=== PATIENT | male | born 1975 | race Hispanic/Latino ===

== ENCOUNTER 2017-04-28 17:30 | Emergency (ER) | payer OTHER ==
[2017-04-28 17:30] VITALS: BMI 33.2
[2017-04-28 17:46] VITALS: TEMP 98.3; O2SAT 98
--- NOTE | 2017-04-28 18:35 | C.PDOC ---
History Of Present Illness 42 y/o male presents to ED with complaints of bilateral back pain with radiation to neck for 1 month. Patient saw PMD today for symptoms and sent him to ED for further evaluation of cervical spine. Patient denies numbness, tingling, weakness or any other complaints at this time. Time Seen by Provider: 04/28/17 18:21 Chief Complaint (Nursing): Upper Extremity Problem/Injury History/Exam Limitations: no limitations Onset/Duration Of Symptoms: Days Quality: "Pain" Past Medical History Reviewed: Historical Data, Nursing Documentation, Vital Signs Vital Signs: Last Vital Signs Temp 98.3 F 04/28/17 17:44 Pulse 84 04/28/17 17:44 Resp 20 04/28/17 17:44 BP 117/83 04/28/17 17:44 Pulse Ox 98 04/28/17 18:47 - Medical History PMH: HTN Family History: States: No Known Family Hx - Social History Hx Tobacco Use: No Hx Alcohol Use: No Hx Substance Use: No Review Of Systems Constitutional: Negative for: Fever, Chills Cardiovascular: Negative for: Chest Pain Respiratory: Negative for: Shortness of Breath Gastrointestinal: Negative for: Nausea, Vomiting, Diarrhea Musculoskeletal: Positive for: Neck Pain, Back Pain Skin: Negative for: Rash Neurological: Negative for: Weakness, Numbness, Headache Physical Exam - Physical Exam Appears: Non-toxic, No Acute Distress Skin: Normal Color, Warm Head: Atraumatic, Normacephalic Oral Mucosa: Moist Neck: Normal ROM, No Midline Cervical Tenderness Gastrointestinal/Abdominal: Soft, No Tenderness, No Guarding, No Rebound Back: Other (Tenderness to Bilateral Trapezius Muscle, ) Extremity: Normal ROM, No Deformity, No Swelling Neurological/Psych: Oriented x3, Normal Speech, Normal Motor, Normal Sensation ED Course And Treatment O2 Sat by Pulse Oximetry: 98 (RA) Pulse Ox Interpretation: Normal Disposition Counseled Patient/Family Regarding: Studies Performed, Diagnosis, Need For Followup - Disposition Disposition: HOME/ ROUTINE Disposition Time: 19:51 Condition: STABLE Additional Instructions: Take medications as prescribed. Follow up with Dr Gould. 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 - Scribe Statement The provider has reviewed the documentation as recorded by the Deidre Escobar All medical record entries made by the Deidre were at my direction and personally dictated by me. I have reviewed the chart and agree that the record accurately reflects my personal performance of the history, physical exam, medical decision making, and the department course for this patient. I have also personally directed, reviewed, and agree with the discharge instructions and disposition.
[2017-04-28 20:27] VITALS: BP 124/72; PULSE 72; RESP 18
--- NOTE | 2017-04-29 11:10 | RAD ---
PROCEDURE: Cervical spine dated 04/28/2017 Note that the distal tip of the odontoid is partially obscured by overlying incisor teeth in the open-mouth projection HISTORY: Pain. COMPARISON: None. FINDINGS: BONES: Current study reveals no evidence of acute compression fractures nor retropulsed fragments. Vertebral bodies exhibit normal stature and alignment. Facets normally aligned. DISC SPACES: Disc space heights are relatively maintained. . Very tiny multilevel posterior osteophyte formation SOFT TISSUES: Normal. No prevertebral soft tissue swelling. OTHER FINDINGS: None. IMPRESSION: No acute fractures. Multilevel tiny posterior osteophyte formation.
== END 2017-04-28 20:27 | disposition home or self-care (01) ==
LOC: C.ER 17:30
DX: M62.830 Muscle spasm of back (principal)

== ENCOUNTER 2017-12-01 14:12 | Emergency (ER) | payer OTHER ==
[2017-12-01 14:12] VITALS: BMI 33.2
[2017-12-01 14:43] VITALS: O2SAT 100
[2017-12-01] MEDS ORDERED: Sodium Chloride 0.9% 500 ML IV STA (16:39)
[2017-12-01] MEDS ORDERED: Sodium Chloride 0.9% 500 ML IV ONE (16:46)
[2017-12-01 17:05] LABS: BASO # 0.1 K/uL (0.0-0.2); BASO % 0.8 % (0.0-2.0); EOS # 0.1 K/uL (0.0-0.7); EOS % 1.5 % (0.0-4.0); LYMPH # 2.3 K/uL (1.0-4.3); LYMPH % 31.3 % (20.0-40.0); MEAN CELL VOLUME 89.5 fL (80.0-94.0); MEAN CORPUSCULAR HEMOGLOBIN 30.6 pg (27.0-31.0); MEAN CORPUSCULAR HGB CONC 34.3 g/dL (33.0-37.0); MEAN PLATELET VOLUME 9.2 fL (7.2-11.7); MONO # 0.5 K/uL (0.0-0.8); MONO % 6.5 % (0.0-10.0); NEUT # 4.5 K/uL (1.8-7.0); NEUT % 59.9 % (50.0-75.0); NRBC % 0.1 % (0.0-2.0); RBC 4.56 Mil/uL (4.40-5.90); RED CELL DISTRIBUTION WIDTH 12.4 % (11.5-14.5); WHITE BLOOD COUNT 7.5 K/uL (4.8-10.8)
[2017-12-01 17:12] LABS: ALB/GLOB RATIO 1.3 (1.0-2.1); ALBUMIN 4.2 g/dL (3.5-5.0); ALT/SGPT 44 U/L (21-72); AST/SGOT 29 U/L (17-59); BLOOD UREA NITROGEN 13 mg/dL (9-20); GFR AFRICAN-AMERICAN > 60; GFR NON-AFRICAN AMERICAN > 60
[2017-12-01 17:14] LABS: INR 1.1; PROTHROMBIN TIME 12.3 SECONDS (9.7-12.2)
--- NOTE | 2017-12-01 17:29 | C.PDOC ---
History Of Present Illness 42 year old male with Hx of brain aneurisms presents to the ED for evaluation of painless bleeding from his rectum that started yesterday. Patient reports he did not see a lot of blood in his toll but it was mostly on the toilet paper after he went to the bathroom. Patient states never having similar symptoms, gone to a GI doctor or having a colonoscopy done. Patient reports he had 1 brain aneurysm clipped and currently is going to [facility] to have another brain aneurysm clipped as well. Patient reports he takes aspirin 81 mg everyday, and lisinopril for his HTN. Patient denies fever, chills, nausea vomit , abdominal pain, rectal pain, dysuria, hematuria, weaknes, numbness. Time Seen by Provider: 12/01/17 15:57 Chief Complaint (Nursing): GI Problem History Per: Patient History/Exam Limitations: no limitations Onset/Duration Of Symptoms: Hrs Current Symptoms Are (Timing): Still Present Amount of Blood Loss: Small Associated Symptoms: Rectal Bleeding Modifying Factors: None Currently Taking: Aspirin Recent travel outside of the [place]: No Additional History Per: Patient Past Medical History Reviewed: Historical Data, Nursing Documentation, Vital Signs Vital Signs: Last Vital Signs Temp 97.9 F 12/01/17 14:41 Pulse 71 12/01/17 14:41 Resp 20 12/01/17 14:41 BP 130/84 12/01/17 14:41 Pulse Ox 100 12/01/17 14:41 - Medical History PMH: HTN Other PMH: brain aneurysm Surgical History: No Surg Hx Family History: States: Other Other Family History: Brain aneurysm - Social History Hx Tobacco Use: No Hx Alcohol Use: No Hx Substance Use: No - Immunization History Hx Tetanus Toxoid Vaccination: No Hx Influenza Vaccination: No Hx Pneumococcal Vaccination: No Review Of Systems Constitutional: Negative for: Fever, Chills Cardiovascular: Negative for: Chest Pain, Palpitations Gastrointestinal: Positive for: Other (rectal bleeding). Negative for: Nausea, Vomiting, Abdominal Pain Genitourinary: Negative for: Dysuria, Hematuria Musculoskeletal: Negative for: Back Pain Skin: Negative for: Rash Neurological: Negative for: Weakness, Numbness Physical Exam - Physical Exam Appears: Non-toxic, No Acute Distress Skin: Normal Color, Warm, Dry Head: Atraumatic, Normacephalic Eye(s): bilateral: Normal Inspection Nose: No Discharge, No Deformity Oral Mucosa: Moist Neck: Normal ROM, Supple Chest: Symmetrical Cardiovascular: Rhythm Regular, No Murmur Respiratory: Normal Breath Sounds, No Rales, No Rhonchi, No Wheezing Gastrointestinal/Abdominal: Soft, No Tenderness, No Guarding, No Rebound Rectal: Maroon Stool, Blood Streaked Stool, No Hemorrhoids, No Mass Extremity: Normal ROM, No Pedal Edema, No Calf Tenderness, No Deformity, No Swelling Neurological/Psych: Oriented x3, Normal Speech, Normal Cognition Gait: Steady ED Course And Treatment - Laboratory Results Result Diagrams: 12/01/17 16:56 12/01/17 16:56 O2 Sat by Pulse Oximetry: 100 (On RA) Pulse Ox Interpretation: Normal Progress Note: Plan: -Labs. -IV fluids. 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 - Scribe Statement The provider has reviewed the documentation as recorded by the Scribe Emery Tanner All medical record entries made by the Scribe were at my direction and personally dictated by me. I have reviewed the chart and agree that the record accurately reflects my personal performance of the history, physical exam, medical decision making, and the department course for this patient. I have also personally directed, reviewed, and agree with the discharge instructions and disposition.
--- NOTE | 2017-12-01 17:29 | C.PDOC ---
History Of Present Illness 42 year old male with Hx of brain aneurisms presents to the ED for evaluation of painless bleeding from his rectum that started yesterday. Patient reports he did not see a lot of blood in his toll but it was mostly on the toilet paper after he went to the bathroom. Patient states never having similar symptoms, gone to a GI doctor or having a colonoscopy done. Patient reports he had 1 brain aneurysm clipped and currently is going to [facility] to have another brain aneurysm clipped as well. Patient reports he takes aspirin 81 mg everyday, and lisinopril for his HTN. Patient denies fever, chills, nausea vomit , abdominal pain, rectal pain, dysuria, hematuria, weaknes, numbness. Time Seen by Provider: 12/01/17 15:57 Chief Complaint (Nursing): GI Problem Past Medical History Reviewed: Historical Data, Nursing Documentation, Vital Signs Vital Signs: Last Vital Signs Temp 97.8 F 12/01/17 18:01 Pulse 60 12/01/17 18:01 Resp 18 12/01/17 18:01 BP 112/69 12/01/17 18:01 Pulse Ox 100 12/01/17 18:01 - Medical History PMH: HTN Other PMH: Brain aneurysm Surgical History: No Surg Hx Family History: States: Other Other Family History: Brain aneurysm - Social History Hx Tobacco Use: No Hx Alcohol Use: No Hx Substance Use: No - Immunization History Hx Tetanus Toxoid Vaccination: No Hx Influenza Vaccination: No Hx Pneumococcal Vaccination: No Review Of Systems Constitutional: Negative for: Fever, Chills Cardiovascular: Negative for: Chest Pain, Palpitations Respiratory: Negative for: Cough, Shortness of Breath Gastrointestinal: Positive for: Other (rectal bleeding). Negative for: Nausea, Vomiting, Abdominal Pain Genitourinary: Negative for: Dysuria, Hematuria Musculoskeletal: Negative for: Back Pain Skin: Negative for: Rash Neurological: Negative for: Weakness, Numbness Physical Exam - Physical Exam Appears: Non-toxic, No Acute Distress Skin: Normal Color, Warm, Dry Head: Atraumatic, Normacephalic Eye(s): bilateral: Normal Inspection Nose: No Discharge, No Deformity Oral Mucosa: Moist Neck: Normal ROM, Supple Chest: Symmetrical Cardiovascular: Rhythm Regular, No Murmur Respiratory: Normal Breath Sounds, No Rales, No Rhonchi, No Wheezing Gastrointestinal/Abdominal: Soft, No Tenderness, No Guarding, No Rebound Rectal: Heme Positive (light brown stool), No Hemorrhoids, No Mass Extremity: Normal ROM, No Pedal Edema, No Calf Tenderness, No Deformity, No Swelling Neurological/Psych: Oriented x3, Normal Speech, Normal Cognition Gait: Steady ED Course And Treatment - Laboratory Results Result Diagrams: 12/01/17 16:56 12/01/17 16:56 O2 Sat by Pulse Oximetry: 100 (On RA) Pulse Ox Interpretation: Normal Progress Note: Plan: -Labs. -IV fluids. -Occult blood stool (+). -Labs - unremarkable, patient is stable to be d/c with PMD and GI follow up. Disposition - Disposition Referrals: Sasha Gould MD [Staff Provider] - Disposition: HOME/ ROUTINE Disposition Time: 17:26 Condition: STABLE Additional Instructions: Follow up with your PMD and Nurse College within 1-2 days. Return to ED if feel worse. 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 - Scribe Statement The provider has reviewed the documentation as recorded by the Scribe Emery Tanner All medical record entries made by the Scribe were at my direction and personally dictated by me. I have reviewed the chart and agree that the record accurately reflects my personal performance of the history, physical exam, medical decision making, and the department course for this patient. I have also personally directed, reviewed, and agree with the discharge instructions and disposition.
[2017-12-01 18:06] VITALS: BP 112/69; PULSE 60; RESP 18; TEMP 97.8
== END 2017-12-01 18:06 | disposition home or self-care (01) ==
LOC: C.ER 14:12
DX: K62.5 Hemorrhage of anus and rectum (principal); I10 Essential (primary) hypertension; Z79.82 Long term (current) use of aspirin
CPT/HCPCS: 80053; 85025; 85610; 85730; 99284; G0328; J7040

== ENCOUNTER 2018-05-05 16:25 | Emergency (ER) | payer OTHER ==
[2018-05-05 16:25] VITALS: BMI 33.2
[2018-05-05 18:41] VITALS: BP 128/83; PULSE 69; RESP 18; TEMP 98.4; O2SAT 97
--- NOTE | 2018-05-05 19:32 | C.PDOC ---
History Of Present Illness 43 y/o male presents to the ER complaining of sore throat and intermittent productive cough which has been present for the past few days. Patient states that he also has slight change in his voice. Tuan having fever, difficulty swallowing food, sick contacts, and recent travel. Chief Complaint (Nursing): Cough, Cold, Congestion History Per: Patient History/Exam Limitations: no limitations Onset/Duration Of Symptoms: Days Current Symptoms Are (Timing): Still Present Severity: Moderate Past Medical History Reviewed: Historical Data, Nursing Documentation, Vital Signs Vital Signs: Last Vital Signs Temp 98.4 F 05/05/18 18:40 Pulse 69 05/05/18 18:40 Resp 18 05/05/18 18:40 BP 128/83 05/05/18 18:40 Pulse Ox 97 05/05/18 19:35 - Medical History PMH: HTN, TIA Other Surgeries: Hx of surgeries Family History: States: No Known Family Hx - Social History Hx Tobacco Use: No Hx Alcohol Use: No Hx Substance Use: No - Immunization History Hx Tetanus Toxoid Vaccination: Yes Hx Influenza Vaccination: Yes Hx Pneumococcal Vaccination: Yes Review Of Systems Except As Marked, All Systems Reviewed And Found Negative. Constitutional: Negative for: Fever, Chills ENT: Positive for: Throat Pain Respiratory: Positive for: Cough Physical Exam - Physical Exam Appears: Non-toxic, No Acute Distress Skin: Normal Color, Warm, Dry Head: Atraumatic, Normacephalic Eye(s): bilateral: Normal Inspection Ear(s): Bilateral: Normal Nose: Normal Oral Mucosa: Moist Throat: Erythema, No Exudate Neck: Supple Chest: Symmetrical Cardiovascular: Rhythm Regular Respiratory: Normal Breath Sounds, No Rales, No Rhonchi, No Wheezing Neurological/Psych: Oriented x3, Normal Speech ED Course And Treatment O2 Sat by Pulse Oximetry: 97 (RA) Pulse Ox Interpretation: Normal - Radiology CXR: Interpreted by Me, Viewed By Me CXR Interpretation: Yes: No Acute Disease Medical Decision Making Medical Decision Making: Plan: --CXR Updates: CXR was negative. Patient has been discharged and instructed to follow up with PMD in 2-3 days. Disposition - Disposition Referrals: Sasha Gould MD [Staff Provider] - Disposition: HOME/ ROUTINE Disposition Time: 17:50 Condition: GOOD Additional Instructions: KIRK MENDEZ, thank you for letting us take care of you today. Your provider was Bill Patten DO and you were treated for THROAT PAINS/COUGH. The emergency medical care you received today was directed at your acute symptoms. If you were prescribed any medication, please fill it and take as directed. It may take several days for your symptoms to resolve. Return to the Emergency Department if your symptoms worsen, do not improve, or if you have any other problems. Please contact your doctor or call one of the physicians/clinics you have been referred to that are listed on the Patient Visit Information form that is included in your discharge packet. Bring any paperwork you were given at discharge with you along with any medications you are taking to your follow up visit. Our treatment cannot replace ongoing medical care by a primary care provider outside of the emergency department. Thank you for allowing the [facility] team to be part of your care today. Follow up with your primary care doctor in 2-3 days for re-evaluation and further management. Prescriptions: Amoxicillin 875 mg PO BID #14 tablet Ibuprofen [Motrin] 600 mg PO Q6 PRN #20 tab PRN Reason: Pain, Moderate (4-7) Instructions: Sore Throat, Adult (DC) Forms: [employer] ([place]) - Clinical Impression Clinical Impression: Upper respiratory infection - Scribe Statement The provider has reviewed the documentation as recorded by the Thomibroshni Gatica Provider Attestation: All medical record entries made by the Scribe were at my direction and personally dictated by me. I have reviewed the chart and agree that the record accurately reflects my personal performance of the history, physical exam, medical decision making, and the department course for this patient. I have also personally directed, reviewed, and agree with the discharge instructions and disposition.
--- NOTE | 2018-05-05 19:32 | RAD ---
HISTORY: r/o infiltrate COMPARISON: Portable chest 11/27/2016. TECHNIQUE: Chest PA and lateral FINDINGS: LUNGS: No active pulmonary disease. PLEURA: No significant pleural effusion identified. No pneumothorax apparent. CARDIOVASCULAR: Normal. OSSEOUS STRUCTURES: No significant abnormalities. VISUALIZED UPPER ABDOMEN: Normal. OTHER FINDINGS: None. IMPRESSION: No interval acute cardiopulmonary disease appreciated.
== END 2018-05-05 18:40 | disposition home or self-care (01) ==
LOC: C.ER 16:25
DX: J06.9 Acute upper respiratory infection, unspecified (principal)

== ENCOUNTER 2018-09-01 11:19 | Emergency (ER) | payer OTHER ==
[2018-09-01 11:19] VITALS: BMI 33.2
[2018-09-01 11:35] VITALS: BP 122/75; PULSE 79; RESP 18; TEMP 100.3; O2SAT 98
--- NOTE | 2018-09-01 11:54 | C.PDOC ---
History Of Present Illness 43 y/o male presents to ED with c/o sinus pressure, sneezing and congestion for 4-5 days. 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 Patient gets periodically checked and has been stable for awhile. Patient denies lightheadedness, vision changes, nausea, vomiting, fever, chills or any other complaints at this time. Time Seen by Provider: 09/01/18 11:36 Chief Complaint (Nursing): ENT Problem History Per: Patient History/Exam Limitations: no limitations Onset/Duration Of Symptoms: Days Current Symptoms Are (Timing): Still Present Past Medical History Reviewed: Historical Data, Nursing Documentation, Vital Signs Vital Signs: Last Vital Signs Temp 100.3 F H 09/01/18 11:32 Pulse 79 09/01/18 11:32 Resp 18 09/01/18 11:32 BP 122/75 09/01/18 11:32 Pulse Ox 98 09/01/18 11:32 - Medical History PMH: Anxiety, HTN, TIA (2017) Surgical History: No Surg Hx Family History: States: No Known Family Hx - Social History Hx Tobacco Use: No Hx Alcohol Use: No Hx Substance Use: No - Immunization History Hx Tetanus Toxoid Vaccination: Yes Hx Influenza Vaccination: Yes Hx Pneumococcal Vaccination: Yes Review Of Systems Constitutional: Negative for: Fever, Chills ENT: Positive for: Nose Congestion Cardiovascular: Negative for: Chest Pain Respiratory: Negative for: Cough, Shortness of Breath Gastrointestinal: Negative for: Nausea, Vomiting Skin: Negative for: Rash Neurological: Positive for: Headache Physical Exam - Physical Exam Appears: Non-toxic, No Acute Distress Skin: Warm, Dry, No Rash Head: Tenderness (frontal and upper maxillary sinus), No Swelling, No Abrasion Eye(s): bilateral: PERRL, EOMI Ear(s): Bilateral: Normal Nose: Other (rhinorrhea) Oral Mucosa: Moist Throat: Normal, No Erythema, No Exudate Neck: Normal ROM, Supple Cardiovascular: Rhythm Regular Respiratory: Normal Breath Sounds, No Rales, No Rhonchi, No Wheezing Neurological/Psych: Oriented x3, Normal Speech, Normal Cognition, Normal Motor, Normal Sensation ED Course And Treatment O2 Sat by Pulse Oximetry: 98 (RA) Pulse Ox Interpretation: Normal Disposition Counseled Patient/Family Regarding: Diagnosis, Need For Followup, Rx Given - Disposition Referrals: YOUR,PMD [Other] Disposition: HOME/ ROUTINE Disposition Time: 11:50 Condition: GOOD Prescriptions: Chlorpheniramine/Dextromethorp [Coricidin Hbp Cough & Cold Tab] 1 each PO Q6 #16 tablet Sodium Chloride [Saline Nasal Boyle] 44 ml NS Q6 #1 spray Instructions: Sinusitis, Adult (DC) Forms: [facility] (Khmer), Work Excuse - Clinical Impression Clinical Impression: Sinusitis, Sinus headache - Scribe Statement The provider has reviewed the documentation as recorded by the Thomibroshni Escobar All medical record entries made by the Thomibroshni were at my direction and personally dictated by me. I have reviewed the chart and agree that the record accurately reflects my personal performance of the history, physical exam, medical decision making, and the department course for this patient. I have also personally directed, reviewed, and agree with the discharge instructions and disposition.
== END 2018-09-01 12:10 | disposition home or self-care (01) ==
LOC: C.ER 11:19
DX: J32.9 Chronic sinusitis, unspecified (principal); R51 Headache

== ENCOUNTER 2018-10-09 09:13 | Inpatient (IN) | payer OTHER ==
[2018-10-09 09:13] VITALS: BMI 33.2
[2018-10-09] MEDS ORDERED: Iodixanol 320 MG/ML 100 ML BOTTLE IV ONE (09:59)
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
--- NOTE | 2018-10-09 10:15 | CT ---
Date of service: 10/09/2018 PROCEDURE: CT HEAD WITHOUT CONTRAST. HISTORY: Code Stroke COMPARISON: 11/27/2016 TECHNIQUE: Axial computed tomography images were obtained through the head/brain without intravenous contrast. Radiation dose: Total exam DLP = 1246.72 mGy-cm. This CT exam was performed using one or more of the following dose reduction techniques: Automated exposure control, adjustment of the mA and/or kV according to patient size, and/or use of iterative reconstruction technique. FINDINGS: HEMORRHAGE: No intracranial hemorrhage. BRAIN: No mass effect or edema. No atrophy. No chronic white matter ischemic change. Note is made of focal embolization coils in the region of the anterior communicating artery, unchanged in appearance compared to the prior CT examination. No evidence of acute infarct. VENTRICLES: Unremarkable. No hydrocephalus. CALVARIUM: Unremarkable. PARANASAL SINUSES: Unremarkable as visualized. No significant inflammatory changes. MASTOID AIR CELLS: Unremarkable as visualized. No inflammatory changes. OTHER FINDINGS: None. IMPRESSION: No evidence of acute infarct. No intracranial hemorrhage. Embolization coils in the region of the anterior communicating artery as on previous examination. The findings were discussed by telephone with Dr. Wick at 10:10 a.m. on 10/09/2018.
[2018-10-09 10:17] LABS: BASO % 0.5 % (0.0-2.0); EOS # 0.3 K/uL (0.0-0.7); EOS % 3.2 % (0.0-4.0); HEMOGLOBIN 14.8 g/dL (12.0-18.0); LYMPH # 2.5 K/uL (1.0-4.3); LYMPH % 31.6 % (20.0-40.0); MEAN CELL VOLUME 89.4 fL (80.0-94.0); MEAN CORPUSCULAR HEMOGLOBIN 30.8 pg (27.0-31.0); MEAN CORPUSCULAR HGB CONC 34.4 g/dL (33.0-37.0); MEAN PLATELET VOLUME 8.9 fL (7.2-11.7); MONO # 0.7 K/uL (0.0-0.8); MONO % 8.3 % (0.0-10.0); NEUT # 4.5 K/uL (1.8-7.0); NEUT % 56.4 % (50.0-75.0); RBC 4.81 Mil/uL (4.40-5.90); RED CELL DISTRIBUTION WIDTH 12.4 % (11.5-14.5)
[2018-10-09 11:18] LABS: ALB/GLOB RATIO 1.4 (1.0-2.1); ALBUMIN 4.3 g/dL (3.5-5.0); ALT/SGPT 47 U/L (21-72); AST/SGOT 26 U/L (17-59); BLOOD UREA NITROGEN 19 mg/dL (9-20); CALCIUM 8.6 mg/dl (8.6-10.4); GFR NON-AFRICAN AMERICAN > 60; HDL CHOLESTEROL 46 mg/dL (30-70)
--- NOTE | 2018-10-09 11:27 | CT ---
Date of service: 10/09/2018. PROCEDURE: CT Angiography of the neck and brain. With contrast HISTORY: History of aneurysm COMPARISON: Correlation made with concurrent CT scan brain TECHNIQUE: Contiguous axial images of the neck were obtained from the level of the vertex of the skull to the superior mediastinum in the arteriographic phase of enhancement. Coronal and sagittal reformats or also generated. IV contrast dose: 100 cc Visipaque 320 Radiation dose: Total exam DLP = 640.21 mGy-cm. This CT exam was performed using one or more of the following dose reduction techniques: Automated exposure control, adjustment of the mA and/or kV according to patient size, and/or use of iterative reconstruction technique. FINDINGS: The aortic arch and great vessels widely patent. The common carotid arteries, carotid bifurcations and internal carotid arteries are also widely patent with no evidence of occlusion or dissection. No significant atherosclerotic disease.. The visualized distal internal carotid arteries including the petrous cavernous and supraclinoid segments also widely patent.. The vertebral arteries are patent throughout of the though there is very minimal asymmetry with the left vertebral artery slightly larger in caliber/more dominant than the right side. Basilar artery patent. There is a rounded metallic density in the region of the anterior communicating artery consistent with endovascular embolization coils in the region anterior communicating artery aneurysm.. The coils result in significant surrounding streak and beam hardening artifact diminishing detail. There may be a small a small residual aneurysm and/or at aneurysm neck remaining; fall formal four-vessel catheter angiogram will likely ultimately be required for definitive diagnosis of residual aneurysm/aneurysm neck. The remaining visualized branches of the [id number] are patent. The distal branch vessels appear relatively symmetric. OTHER FINDINGS: No significant aortic atherosclerotic calcification or mural plaque present. IMPRESSION: Status post embolization anterior communicating artery aneurysm. There appears to be small residual aneurysm and/or aneurysm neck remaining. Ultimately traditional four-vessel catheter angiogram will likely be required for definitive diagnosis. No evidence of acute intracranial hemorrhage. No evidence of large acute infarct. Note these findings were discussed with Dr. Wick at approximately 11:20 a.m. with written down and read back verification. The
[2018-10-09 11:29] LABS: LDL CHOLESTEROL 102 mg/dL (0-129)
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
--- NOTE | 2018-10-09 17:09 | CP.PCM.CON ---
History of Present Illness - History of Present Illness History of Present Illness: Neurology Consultation Note: Mr. Brewer is a 43-year-old man with a past medical history of a ruptured AComm aneurysm in 2015, s/p endovascular coiling, who has had a previous episode of loss of consciousness confusion lasting about 10 minutes. He had another episode today while driving. 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 He was staring blanking, lost time, was confused for about 10 minutes and subsequently was disoriented. He did not have any loss of urine, no tongue biting, but he did note some shaking on the right side. Review of Systems - Constitutional Constitutional: As Per HPI - EENT Eyes: absent: As Per HPI, Blind Spots, Blurred Vision, Change in Vision, Decreased Night Vision, Diplopia, Discharge, Dry Eye, Exophthalmos, Floaters, Irritation, Itchy Eyes, Loss of Peripheral Vision, Pain, Photophobia, Requires Corrective Lenses, Sees Flashes, Spots in Vision, Tunnel Vision, Other Visual D isturbances, Loss of Vision, Other Ears: absent: As Per HPI, Decreased Hearing, Ear Discharge, Ear Pain, Tinnitus, Abnormal Hearing, Disequilibrium, Dizziness, Other Nose/Mouth/Throat: absent: As Per HPI, Epistaxis, Nasal Congestion, Nasal Discharge, Nasal Obstruction, Nasal Trauma, Nose Pain, Post Nasal Drip, Sinus Pain, Sinus Pressure, Bleeding Gums, Change in Voice, Dental Pain, Dry Mouth, Dysphagia, Halitosis, Hoarsness, Lip Swelling, Mouth Lesions, Mouth Pain, Odynophagia, Sore Throat, Throat Swelling, Tongue Swelling, Facial Pain, Neck Pa in, Neck Mass, Other - Cardiovascular Cardiovascular: absent: As Per HPI, Acrocyanosis, Chest Pain, Chest Pain at Rest, Chest Pain with Activity, Claudication, Diaphoresis, Dyspnea, Dyspnea on Exertion, Edema, Irregular Heart Rhythm, Pain Radiating to Arm/Neck/Jaw, Leg Edema, Leg Ulcers, Lightheadedness, Orthopnea, Palpitations, Paroxysmal Nocturnal Dyspnea, Pedal Edema, Radiating Pain, Rapid Heart Rate, Slow Heart Rate, Syncope, Other - Respiratory Respiratory: absent: As Per HPI, Cough, Dyspnea, Hemoptysis, Dyspnea on Exertion, Wheezing, Snoring, Stridor, Pain on Inspiration, Chest Congestion, Excessive Mucous Production, Change in Mucous Color, Pain with Coughing, Other - Gastrointestinal Gastrointestinal: absent: As Per HPI, Abdominal Pain, Belching, Bloating, Change in Bowel Habits, Change in Stool Character, Coffee Ground Emesis, Constipation, Cramping, Diarrhea, Dyspepsia, Dysphagia, Early Satiety, Excessive Flatus, Fecal Incontinence, Heartburn, Hematemesis, Hematochezia, Loose Stools, Melena, Nausea, Odynophagia, Temesmus, Vomiting, Other - Genitourinary Genitourinary: absent: As Per HPI, Change in Urinary Stream, Difficulty Urinating, Dysuria, Flank Pain, Hematuria, Pyuria, Nocturia, Urinary Incontinence, Urinary Frequency, Urinary Hesitance, Urinary Urgency, Voiding Freq/Small Amts, Freq UTI, Hx Renal/Bladder Calculi, Hx /Renal Surgery, Bladder Distension, Other - Musculoskeletal Musculoskeletal: absent: As Per HPI, Abnormal Gait, Arthralgias, Atrophy, Back Pain, Deformity, Joint Swelling, Limited Range of Motion, Loss of Height, Muscle Cramps, Muscle Weakness, Myalgias, Neck Pain, Numbness, Radiating Pain into Limb, Stiffness, Tingling, Other - Integumentary Integumentary: absent: As Per HPI, Acne, Alopecia, Bleeding Lesions, Change in Hair, Change in Nails, Change in Pigmentation, Changing Lesions, Dry Skin, Erythema, Furuncle, Hirsutism, Lesions, New Lesions, Non-Healing Lesions, Photosensitivity, Pruritus, Rash, Skin Pain, Skin Ulcer, Sores, Striae, Swelling, Unusual Bruising, Wounds, Jaundice, Other - Neurological Neurological: As Per HPI - Psychiatric Psychiatric: absent: As Per HPI, Abnormal Sleep Pattern, Anhedonia, Anxiety, Auditory Hallucinations, Behavioral Changes, Change in Appetite, Change in Libido, Confusion, Depression, Difficulty Concentrating, Hallucinations, Homicidal Ideation, Hopelessness, Irritability, Memory Loss, Mood Swings, Panic Attacks, Paranoia, Suicidal Ideation, Visual Hallucinations, Tactile Halluci nations, Other - Endocrine Endocrine: absent: As Per HPI, Change in Body Appearance, Change in Libido, Cold Intolorance, Deepening of Voice, Excessive Sweating, Fatigue, Flushing, Heat Intolorance, Increase in Ring/Shoe/Hat Size, Palpitations, Polydipsia, Polyp hagia, Polyuria, Other - Hematologic/Lymphatic Hematologic: absent: As Per HPI, Easy Bleeding, Easy Bruising, Lymphadenopathy, Other Past Patient History - Infectious Disease Hx of Infectious Diseases: None - Past Medical History & Family History Past Medical History?: Yes - Past Social History Smoking Status: Never Smoked - CARDIAC Hx Hypertension: Yes - NEUROLOGICAL Hx Transient Ischemic Attacks (TIA): Yes (2016) - MUSCULOSKELETAL/RHEUMATOLOGICAL Hx Falls: No - PSYCHIATRIC Hx Anxiety: Yes Hx Substance Use: No - SURGICAL HISTORY Hx Surgeries: Yes Other/Comment: Aneurysm repair - coiling 2013 - ANESTHESIA Hx Anesthesia: Yes Hx Anesthesia Reactions: No Meds Allergies/Adverse Reactions: Allergies Allergy/AdvReac Type Severity Reaction Status Date / Time shellfish derived Allergy Verified 10/09/18 09:27 - Medications Medications: Current Medications Alprazolam (Xanax) 0.5 mg PO TID PRN PRN Reason: Anxiety Sodium Chloride (Sodium Chloride 0.9%) 1,000 mls @ 100 mls/hr IV .Q10H [facility] Lisinopril (Zestril) 10 mg PO DAILY [facility] Physical Exam - Constitutional Appears: Well - Head Exam Head Exam: ATRAUMATIC, NORMAL INSPECTION, NORMOCEPHALIC - Eye Exam Eye Exam: EOMI, Normal appearance, PERRL Pupil Exam: NORMAL ACCOMODATION, PERRL - ENT Exam ENT Exam: Mucous Membranes Moist, Normal Exam - Neck Exam Neck exam: Positive for: Normal Inspection - Respiratory Exam Respiratory Exam: Clear to Auscultation Bilateral, NORMAL BREATHING PATTERN - Cardiovascular Exam Cardiovascular Exam: REGULAR RHYTHM, +S1, +S2 - GI/Abdominal Exam GI & Abdominal Exam: Normal Bowel Sounds, Soft. absent: Tenderness - Rectal Exam Rectal Exam: Deferred - Extremities Exam Extremities exam: Positive for: normal inspection - Back Exam Back exam: NORMAL INSPECTION - Neurological Exam Neurological exam: Alert, CN II-XII Intact, Normal Gait, Oriented x3, Reflexes Normal - Psychiatric Exam Psychiatric exam: Normal Affect, Normal Mood - Skin Skin Exam: Dry, Intact, Normal Color, Warm Results - Vital Signs Recent Vital Signs: Last Vital Signs Temp 98.3 F 10/09/18 14:11 Pulse 73 10/09/18 16:48 Resp 17 10/09/18 16:48 BP 101/66 10/09/18 16:48 Pulse Ox 99 10/09/18 16:48 - Labs Result Diagrams: 10/09/18 09:45 10/09/18 11:00 Labs: Laboratory Results - last 24 hr 10/09/18 10/09/18 10/09/18 09:25 09:45 10:08 WBC 8.0 RBC 4.81 Hgb 14.8 Hct 43.0 MCV 89.4 MCH 30.8 MCHC 34.4 RDW 12.4 Plt Count 197 MPV 8.9 Neut % (Auto) 56.4 Lymph % (Auto) 31.6 Storey % (Auto) 8.3 Eos % (Auto) 3.2 Baso % (Auto) 0.5 Neut # (Auto) 4.5 Lymph # (Auto) 2.5 Storey # (Auto) 0.7 Eos # (Auto) 0.3 Baso # (Auto) 0.0 Sodium Potassium Chloride Carbon Dioxide Anion Gap BUN Creatinine Est GFR ( Amer) Est GFR (Non-Af Amer) POC Glucose (mg/dL) 88 Random Glucose Calcium Total Bilirubin AST ALT Alkaline Phosphatase Troponin I Total Protein Albumin Globulin Albumin/Globulin Ratio Triglycerides Cholesterol LDL Cholesterol Direct HDL Cholesterol Blood Type A POSITIVE Antibody Screen Negative 10/09/18 11:00 WBC RBC Hgb Hct MCV MCH MCHC RDW Plt Count MPV Neut % (Auto) Lymph % (Auto) Storey % (Auto) Eos % (Auto) Baso % (Auto) Neut # (Auto) Lymph # (Auto) Storey # (Auto) Eos # (Auto) Baso # (Auto) Sodium 139 Potassium 3.6 Chloride 99 Carbon Dioxide 29 Anion Gap 14 BUN 19 Creatinine 0.8 Est GFR ( Amer) > 60 Est GFR (Non-Af Amer) > 60 POC Glucose (mg/dL) Random Glucose 70 L Calcium 8.6 Total Bilirubin 0.6 AST 26 ALT 47 Alkaline Phosphatase 86 Troponin I < 0.0120 Total Protein 7.4 Albumin 4.3 Globulin 3.1 Albumin/Globulin Ratio 1.4 Triglycerides 113 Cholesterol 179 LDL Cholesterol Direct 102 HDL Cholesterol 46 Blood Type Antibody Screen Assessment & Plan (1) Seizure Assessment and Plan: The patient has a history of ruptured aneurysm with now two episodes of loss of consciousness, staring and confusion since 2014. These are consistent with complex partial seizures. I recommend treatment with Keppra 500 mg BID and will obtain EEG for one hour and MRI of the brain without contrast (coils are MRI safe, confirmed). Thank you for this consultation. Status: Acute
[2018-10-09] MEDS: Sodium Chloride 0.9% 1,000 ML IV SCH ×2 (17:11→20:35)
[2018-10-09] MEDS ORDERED: Sodium Chloride 0.9% 1,000 ML ONE (17:16)
--- NOTE | 2018-10-09 18:08 | RAD ---
Date of service: 10/09/2018 HISTORY: Code Stroke COMPARISON: 05/05/2018 FINDINGS: LUNGS: No active pulmonary disease. PLEURA: No significant pleural effusion identified, no pneumothorax apparent. CARDIOVASCULAR: No aortic atherosclerotic calcification present. Normal cardiac size. No pulmonary vascular congestion. OSSEOUS STRUCTURES: No significant abnormalities. VISUALIZED UPPER ABDOMEN: Normal. OTHER FINDINGS: None. IMPRESSION: No active disease.
[2018-10-10] MEDS: Sodium Chloride 0.9% 1,000 ML IV SCH ×2 (06:27→17:49)
--- NOTE | 2018-10-10 15:45 | CP.PCM.PN ---
Subjective - Date & Time of Evaluation Date of Evaluation: 10/10/18 Time of Evaluation: 15:45 - Subjective Subjective: neurology evaluation noted. Waiting for EEG and MRI Vital signs are stable no neuro deficit Objective - Vital Signs/Intake and Output Vital Signs (last 24 hours): Temp Pulse Resp BP Pulse Ox 97.8 F 64 20 111/74 98 10/10/18 07:00 10/10/18 07:00 10/10/18 07:00 10/10/18 07:00 10/10/18 07:00 - Medications Medications: Current Medications Alprazolam (Xanax) 0.5 mg PO TID PRN PRN Reason: Anxiety Sodium Chloride (Sodium Chloride 0.9%) 1,000 mls @ 100 mls/hr IV .Q10H [facility] Last Admin: 10/10/18 06:27 Dose: 100 mls/hr Levetiracetam (Keppra) 500 mg PO BID [facility] Last Admin: 10/10/18 09:19 Dose: 500 mg Lisinopril (Zestril) 10 mg PO DAILY [facility] Last Admin: 10/10/18 09:19 Dose: 10 mg - Labs Labs: 10/09/18 09:45 10/09/18 11:00
[2018-10-11] MEDS: Sodium Chloride 0.9% 1,000 ML IV SCH ×2 (04:16→15:05)
--- NOTE | 2018-10-11 13:06 | MRI ---
Date of service: 10/11/2018 PROCEDURE: MRI BRAIN WITHOUT CONTRAST HISTORY: Seizure COMPARISON: Comparison made with prior CT scan and CTA brain dated 10/09/2018.. Comparison also made with prior MRI and MRA brain 11/29/2016. TECHNIQUE: Multiplanar, multisequence MR images of the brain were obtained without intravenous contrast enhancement. FINDINGS: HEMORRHAGE: No acute parenchymal, subarachnoid nor extra-axial hemorrhage. No evidence of hemosiderin deposition identified on gradient echo weighted sequence.. Previously noted focus of embolization coils in the region of the anterior communicating artery with suspected small residual aneurysm less well seen on this study as compared to prior CTA and MRA of the brain.. In addition, previously suspected small infundibulum arising from the proximal inferior margin right M1 segment seen on MRA of the brain also poorly delineated. Please refer to those studies and corresponding reports for additional details. Partially empty sella. DWI: No evidence of an acute or early subacute infarction seen on diffusion imaging. BRAIN PARENCHYMA: No mass effect or edema. No atrophy or chronic microvascular ischemic changes. VENTRICLES: No obstructive hydrocephalus. CRANIUM: Unremarkable. ORBITS: Orbits and contents are grossly unremarkable. PARANASAL SINUSES/MASTOIDS: Minimal mucosal thickening seen within a few ethmoid air cells. VASCULAR SYSTEM: Visualized major vascular flow voids at skull base patent. OTHER FINDINGS: None. IMPRESSION: No acute parenchymal, subarachnoid nor extra-axial hemorrhage. No evidence of hemosiderin deposition identified on gradient echo weighted sequence.. Previously noted focus of embolization coils in the region of the anterior communicating artery with suspected small residual aneurysm less well seen on this study as compared to prior CTA and MRA of the brain.. In addition, previously suspected small infundibulum arising from the proximal inferior margin right M1 segment seen on MRA of the brain also poorly delineated. Please refer to those studies and corresponding reports for additional details.
--- NOTE | 2018-10-11 13:27 | CP.PCM.PN ---
Subjective - Date & Time of Evaluation Date of Evaluation: 10/11/18 Time of Evaluation: 13:26 - Subjective Subjective: NO COMPLAINTS VS STABLE MRI OF BRAIN , NOACUTE OR REMOTE BLEED RESIDUAL ANEURYSM ON [facility]ZIE. CHECK EEG Objective - Vital Signs/Intake and Output Vital Signs (last 24 hours): Temp Pulse Resp BP Pulse Ox 97.9 F 68 18 115/78 99 10/11/18 08:28 10/11/18 08:28 10/11/18 08:28 10/11/18 08:28 10/11/18 08:28 - Medications Medications: Current Medications Alprazolam (Xanax) 0.5 mg PO TID PRN PRN Reason: Anxiety Sodium Chloride (Sodium Chloride 0.9%) 1,000 mls @ 100 mls/hr IV .Q10H [facility] Last Admin: 10/11/18 04:16 Dose: 100 mls/hr Levetiracetam (Keppra) 500 mg PO BID [facility] Last Admin: 10/11/18 10:35 Dose: 500 mg Lisinopril (Zestril) 10 mg PO DAILY [facility] Last Admin: 10/11/18 10:35 Dose: 10 mg - Labs Labs: 10/09/18 09:45 10/09/18 11:00
--- NOTE | 2018-10-11 14:27 | CP.PCM.PN ---
<Dennis Driscoll - Last Filed: 10/11/18 14:24> Subjective - Date & Time of Evaluation Date of Evaluation: 10/11/18 Time of Evaluation: 12:45 - Subjective Subjective: PGY2 Neuro Note for Dr. Solomon Patient seen and examined this morning at bedside. Patient states that he is feeling well and has no complaints. Patient is well educated on his condition and states that he has had multiple multiple episodes of LOC (suspected seizures) since his ruptured aneurysm in 2014 but has never been placed on seizure medications in his life. Patient denies any shaking, auras or LOC since being placed in the hospital. Objective - Vital Signs/Intake and Output Vital Signs (last 24 hours): Temp Pulse Resp BP Pulse Ox 97.9 F 68 18 115/78 99 10/11/18 08:28 10/11/18 08:28 10/11/18 08:28 10/11/18 08:28 10/11/18 08:28 - Medications Medications: Current Medications Alprazolam (Xanax) 0.5 mg PO TID PRN PRN Reason: Anxiety Divalproex Sodium (Depakote Er) 1,000 mg PO STAT STA Stop: 10/11/18 14:20 Divalproex Sodium (Depakote Dr) 750 mg PO BID [facility] Sodium Chloride (Sodium Chloride 0.9%) 1,000 mls @ 100 mls/hr IV .Q10H [facility] Last Admin: 10/11/18 04:16 Dose: 100 mls/hr Lisinopril (Zestril) 10 mg PO DAILY [facility] Last Admin: 10/11/18 10:35 Dose: 10 mg - Labs Labs: 10/09/18 09:45 10/09/18 11:00 - Constitutional Appears: Non-toxic, No Acute Distress - Head Exam Head Exam: ATRAUMATIC, NORMOCEPHALIC - Eye Exam Eye Exam: Normal appearance - Respiratory Exam Respiratory Exam: NORMAL BREATHING PATTERN. absent: Accessory Muscle Use - Extremities Exam Extremities Exam: Normal Inspection - Neurological Exam Neurological Exam: Alert, Awake, CN II-XII Intact, Oriented x3 Additional comments: Clear, fluid speech. - Psychiatric Exam Psychiatric exam: Normal Affect, Normal Mood - Skin Skin Exam: Dry, Warm Assessment and Plan - Assessment and Plan (Free Text) Plan: Seizure The patient's history of a ruptured aneurysm with two prior episodes of loss of consciousness, starting and confusion since 2014. The history of the patient is consistent with complex partial seizures. Patient reports a history of anxiety so will switch patient from Keppra to Depakote. Will load patient with Depakote 1000mg today and start patient on Depakote 750mg BID. MRA of head to re-evaluate patient's aneurysm, which patient states he has not had checked in over a year. 24 hour EEG ordered. 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 Patient states he understands. Will continue to follow. Case discussed with Dr. Naveen Collins Americo PGY2 <Praveen Solomon - Last Filed: 10/11/18 17:14> Objective - Vital Signs/Intake and Output Vital Signs (last 24 hours): Temp Pulse Resp BP Pulse Ox 98 F 79 29 H 115/75 99 10/11/18 15:00 10/11/18 15:00 10/11/18 15:00 10/11/18 15:00 10/11/18 15:00 - Medications Medications: Current Medications Alprazolam (Xanax) 0.5 mg PO TID PRN PRN Reason: Anxiety Divalproex Sodium (Depakote Dr) 750 mg PO BID [facility] Sodium Chloride (Sodium Chloride 0.9%) 1,000 mls @ 100 mls/hr IV .Q10H [facility] Last Admin: 10/11/18 15:05 Dose: Not Given Lisinopril (Zestril) 10 mg PO DAILY [facility] Last Admin: 10/11/18 10:35 Dose: 10 mg - Labs Labs: 10/09/18 09:45 10/09/18 11:00 Assessment and Plan - Assessment and Plan (Free Text) Assessment: All medical record entries made by the REsident were at my direction and pe rsonally dictated by me. I have reviewed the chart and agree that the record accurately reflects my personal performance of the history, physical exam, medical decision making, and the department course for this patient. I have also personally directed, reviewed, and agree with the discharge instructions and disposition. THank you Dr. solomon
[2018-10-11] MEDS ORDERED: Divalproex 500 mg ER Tab PO ONE (15:15)
--- NOTE | 2018-10-11 16:56 | MRI ---
Date of service: 10/11/2018 PROCEDURE: Magnetic Resonance Angiography Brain HISTORY: History of aneurysm. COMPARISON: Comparison made with prior CT scan and CTA of the brain both dated 10/09/2018. Correlation also made with prior MRA of the brain 11/29/2016. TECHNIQUE: 3D time of flight MR angiography of the intracranial arteries was performed. Rotating maximum intensity projection images were generated. FINDINGS: INTERNAL CAROTID ARTERIES: Unremarkable. The skull base, petrous, cavernous and supraclinoid segments are bilaterally widely patient. ANTERIOR CEREBRAL ARTERIES: Unremarkable. A1 and A2 segments are widely patent. Smaller distal branches unremarkable, as visualized. MIDDLE CEREBRAL ARTERIES: Unremarkable. M1 and M2 segments are widely patent. Perisylvian branches grossly symmetric. POSTERIOR CIRCULATION: Basilar Artery: Unremarkable. Distal Vertebral Arteries: Unremarkable. Posterior Cerebral Arteries: Unremarkable. Posterior Inferior Cerebellar Arteries: Unremarkable. ANEURYSM/ VASCULAR MALFORMATIONS: Previous noted small rounded ball of embolization coils in the region of the anterior communicating artery are not well seen on this exam however there does appear to be residual aneurysm in the region of the anterior communicating artery. Dedicated traditional four-vessel cerebral angiogram recommended for further evaluation. Questionable small infundibulum or aneurysm arising from the inferior margin of the mid M1 segment again seen. OTHER FINDINGS: None. IMPRESSION: Previous noted small rounded ball of embolization coils in the region of the anterior communicating artery are not well seen on this exam however there does appear to be residual aneurysm in the region of the anterior communicating artery. Dedicated traditional four-vessel cerebral angiogram recommended for further evaluation. Questionable small infundibulum or aneurysm arising from the inferior margin of the mid M1 segment again seen.
--- NOTE | 2018-10-11 21:18 | CARD ---
APPROVED REPORT Date of service: 10/09/2018 EKG Measurement Heart [id number] <Conclusion> Sinus rhythm with sinus arrhythmia with occasional premature ventricular complexes Cannot rule out Anterior infarct, age undetermined Abnormal ECG
[2018-10-12] MEDS: Sodium Chloride 0.9% 1,000 ML IV SCH ×3 (07:45→17:31)
[2018-10-12] MEDS: Divalproex 250 mg DR Tab PO SCH ×2 (10:32→17:31)
--- NOTE | 2018-10-12 14:17 | CP.PCM.PN ---
Subjective - Date & Time of Evaluation Date of Evaluation: 10/12/18 Time of Evaluation: 14:16 - Subjective Subjective: patient currently has no complaints. Patient currently undergoing video EEG monitoring. MRI of the head and MRA SHOWS NO NEW CHANGES> Objective - Vital Signs/Intake and Output Vital Signs (last 24 hours): Temp Pulse Resp BP Pulse Ox 97.9 F 88 20 128/83 98 10/12/18 07:35 10/12/18 12:00 10/12/18 07:35 10/12/18 10:37 10/12/18 07:35 - Medications Medications: Current Medications Alprazolam (Xanax) 0.5 mg PO TID PRN PRN Reason: Anxiety Divalproex Sodium (Depakote Dr) 750 mg PO BID [facility] Last Admin: 10/12/18 10:32 Dose: 750 mg Lisinopril (Zestril) 10 mg PO DAILY [facility] Last Admin: 10/12/18 10:32 Dose: 10 mg - Labs Labs: 10/09/18 09:45 10/09/18 11:00
--- NOTE | 2018-10-12 15:06 | CP.PCM.PN ---
Subjective - Date & Time of Evaluation Date of Evaluation: 10/12/18 Time of Evaluation: 12:15 - Subjective Subjective: PGY2 Neuro Note for Dr. Hodge Patient seen and examined this morning at bedside. Patient is currently undergoing 24 hour EEG video monitoring. Patient is feeling well and without complaints. Objective - Vital Signs/Intake and Output Vital Signs (last 24 hours): Temp Pulse Resp BP Pulse Ox 97.9 F 88 20 128/83 98 10/12/18 07:35 10/12/18 12:00 10/12/18 07:35 10/12/18 10:37 10/12/18 07:35 - Medications Medications: Current Medications Alprazolam (Xanax) 0.5 mg PO TID PRN PRN Reason: Anxiety Divalproex Sodium (Depakote Dr) 750 mg PO BID [facility] Last Admin: 10/12/18 10:32 Dose: 750 mg Lisinopril (Zestril) 10 mg PO DAILY [facility] Last Admin: 10/12/18 10:32 Dose: 10 mg - Labs Labs: 10/09/18 09:45 10/09/18 11:00 - Constitutional Appears: Well, Non-toxic, No Acute Distress - Head Exam Additional comments: EEG electrodes in place - Eye Exam Eye Exam: Normal appearance - ENT Exam ENT Exam: Mucous Membranes Moist - Respiratory Exam Respiratory Exam: NORMAL BREATHING PATTERN. absent: Accessory Muscle Use - Neurological Exam Neurological Exam: Alert, Awake, Oriented x3 Additional comments: Clear, fluid speech. - Psychiatric Exam Psychiatric exam: Normal Affect, Normal Mood - Skin Skin Exam: Dry, Normal Color, Warm Assessment and Plan - Assessment and Plan (Free Text) Assessment: Seizure with h/o of ruptured aneurysm s/p coiling Brain MRI 10/11/18: No acute parenchymal, subarachnoid nor extra-axial hemorrhage. No evidence of hemosiderin deposition identified on gradient echo weighted sequence.. Previously noted focus of embolization coils in the region of the anterior communicating artery with suspected small residual aneurysm less well seen on this study as compared to prior CTA and MRA of the brain.. In addition, previously suspected small infundibulum arising from the proximal inferior margin right M1 segment seen on MRA of the brain also poorly delineated. Please refer to those studies and corresponding reports for add itional details. Head MRA 10/11/18: Previous noted small rounded ball of embolization coils in the region of the anterior communicating artery are not well seen on this exam however there does appear to be residual aneurysm in the region of the anterior communicating artery. Dedicated traditional four-vessel cerebral angiogram recommended for further evaluation. Questionable small infundibulum or aneurysm arising from the inferior margin of the mid M1 segment again seen. Discussed results of MRA with patient showing known residual aneurysm. Recommended to patient that his two daughters get Head MRA imaging to rule out aneurysms due to his strong family history of aneurysms. Patient states he agrees and understands. Patient is to continue video EEG monitoring for 24 hours, if silent, patient can be discharged home tomorrow from neurology stand-point. He is to continue taking Depakote 750mg BID upon discharge. He is to follow up with Dr. Hodge in her office in 1 month. Case discussed with Dr. Naveen Collins Americo PGY2
[2018-10-13 00:52] VITALS: RESP 20
[2018-10-13 08:17] VITALS: BP 106/74; PULSE 76; TEMP 97.6; O2SAT 97
[2018-10-13] MEDS: Divalproex 250 mg DR Tab PO SCH (09:04)
--- NOTE | 2018-10-13 13:42 | CP.PCM.DIS ---
Provider - Provider Date of Admission: 10/12/18 17:17 Attending physician: Sasha Gould MD Time Spent in preparation of Discharge (in minutes): 36 Hospital Course - Lab Results Lab Results: Most Recent Lab Values WBC 8.0 K/uL (4.8-10.8) 10/09/18 09:45 RBC 4.81 Mil/uL (4.40-5.90) 10/09/18 09:45 Hgb 14.8 g/dL (12.0-18.0) 10/09/18 09:45 Hct 43.0 % (35.0-51.0) 10/09/18 09:45 MCV 89.4 fL (80.0-94.0) 10/09/18 09:45 MCH 30.8 pg (27.0-31.0) 10/09/18 09:45 MCHC 34.4 g/dL (33.0-37.0) 10/09/18 09:45 RDW 12.4 % (11.5-14.5) 10/09/18 09:45 Plt Count 197 K/uL (130-400) 10/09/18 09:45 MPV 8.9 fL (7.2-11.7) 10/09/18 09:45 Neut % (Auto) 56.4 % (50.0-75.0) 10/09/18 09:45 Lymph % (Auto) 31.6 % (20.0-40.0) 10/09/18 09:45 Tyler % (Auto) 8.3 % (0.0-10.0) 10/09/18 09:45 Eos % (Auto) 3.2 % (0.0-4.0) 10/09/18 09:45 Baso % (Auto) 0.5 % (0.0-2.0) 10/09/18 09:45 Neut # (Auto) 4.5 K/uL (1.8-7.0) 10/09/18 09:45 Lymph # (Auto) 2.5 K/uL (1.0-4.3) 10/09/18 09:45 Tyler # (Auto) 0.7 K/uL (0.0-0.8) 10/09/18 09:45 Eos # (Auto) 0.3 K/uL (0.0-0.7) 10/09/18 09:45 Baso # (Auto) 0.0 K/uL (0.0-0.2) 10/09/18 09:45 Sodium 139 mmol/L (132-148) 10/09/18 11:00 Potassium 3.6 mmol/L (3.6-5.2) 10/09/18 11:00 Chloride 99 mmol/L (98-107) 10/09/18 11:00 Carbon Dioxide 29 mmol/L (22-30) 10/09/18 11:00 Anion Gap 14 (10-20) 10/09/18 11:00 BUN 19 mg/dL (9-20) 10/09/18 11:00 Creatinine 0.8 mg/dL (0.8-1.5) 10/09/18 11:00 Est GFR ( Amer) > 60 10/09/18 11:00 Est GFR (Non-Af Amer) > 60 10/09/18 11:00 POC Glucose (mg/dL) 77 mg/dL (65-110) 10/13/18 11:10 Random Glucose 70 mg/dL (75-110) L 10/09/18 11:00 Hemoglobin A1c 5.1 % (4.2-6.5) 10/09/18 09:45 Calcium 8.6 mg/dl (8.6-10.4) 10/09/18 11:00 Total Bilirubin 0.6 mg/dL (0.2-1.3) 10/09/18 11:00 AST 26 U/L (17-59) 10/09/18 11:00 ALT 47 U/L (21-72) 10/09/18 11:00 Alkaline Phosphatase 86 U/L (38-126) 10/09/18 11:00 Troponin I < 0.0120 ng/mL (0.00-0.120) 10/09/18 19:32 Total Protein 7.4 g/dL (6.3-8.3) 10/09/18 11:00 Albumin 4.3 g/dL (3.5-5.0) 10/09/18 11:00 Globulin 3.1 gm/dL (2.2-3.9) 10/09/18 11:00 Albumin/Globulin Ratio 1.4 (1.0-2.1) 10/09/18 11:00 Triglycerides 113 mg/dL (0-149) 10/09/18 11:00 Cholesterol 179 mg/dL (0-199) 10/09/18 11:00 LDL Cholesterol Direct 102 mg/dL (0-129) 10/09/18 11:00 HDL Cholesterol 46 mg/dL (30-70) 10/09/18 11:00 Blood Type A POSITIVE 10/09/18 10:08 Antibody Screen Negative 10/09/18 10:08 - Hospital Course Hospital Course: 43 years old male admitted to [facility] after losing consciousness for a few minutes while driving. 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 Patient had 2 times called inserted and the last angiogram showed almost disappearance of the aneurysm with a small neck still remaining patient also had a TIA symptoms about 2 years ago patient also has a history of hypertension and takes medication Patient stated that while driving he suddenly loss consciousness and he had no thought process everything became blank there was no any definite seizures. Socially patient drove the car at home and came to emergency room with his . In the emergency room CAT scan of the head did not show any bleed. CT Caitlyn of the head and neck showed small aneurysm with a neck on the anterior communicative artery with no bleed. This apparently is unchanged from the previous angiogram done at [facility] and also in [facility] in [place]. neurology workup was negative, MRI of the head MRA of the head CT angios of the head a showed old aneurysm on the anterior, coronary artery with a with no evidence of any bleed. Patient underwent 24 hour video EEG results pending. 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 Currently patient is stable and will be discharged on Depakote and is blood pressure medication Patient was strongly advised not to drive and it was also seconded by neurology. Patient is fully aware of not toDrive due to danger to himself and the public. Discharge Exam - Head Exam Head Exam: ATRAUMATIC, NORMOCEPHALIC Discharge Plan - Follow Up Plan Condition: GUARDED Disposition: HOME/ ROUTINE Instructions: Seizures, Adult (DC), Aphasia (DC) Referrals: Adam Amin MD [Staff Provider] - Sasha Gould MD [Staff Provider] - Praveen Hodge MD [Staff Provider] -
--- NOTE | 2018-10-13 14:42 | CP.PCM.PN ---
Subjective - Date & Time of Evaluation Date of Evaluation: 10/13/18 Time of Evaluation: 14:41 Objective - Vital Signs/Intake and Output Vital Signs (last 24 hours): Temp Pulse Resp BP Pulse Ox 97.6 F 76 20 106/74 97 10/13/18 08:00 10/13/18 08:00 10/13/18 08:00 10/13/18 08:00 10/13/18 08:00 Intake and Output: 10/13/18 10/13/18 06:59 18:59 Intake Total 600 Balance 600 - Medications Medications: Current Medications Alprazolam (Xanax) 0.5 mg PO TID PRN PRN Reason: Anxiety Divalproex Sodium (Depakote Dr) 750 mg PO BID [facility] Last Admin: 10/13/18 09:04 Dose: 750 mg Lisinopril (Zestril) 10 mg PO DAILY [facility] Last Admin: 10/13/18 09:04 Dose: 10 mg - Labs Labs: 10/09/18 09:45 10/09/18 11:00 Assessment and Plan - Assessment and Plan (Free Text) Assessment: FOLLOW UP WITH DR ALMANZA IN HIS OFFICE -----CALL FOR APPOINTMENT FOLLOW UP WITH DR CAICEDO IN ONE MONTH ----CALL FOR APPOINTMENT CONTINUE HOME MEDICATION NEW PRESCRIPTION GIVEN DEPAKOTE 750 MG BY MOUTH TWICE A DAY ACTIVITY INSTRUCTED BY NEUROLOGIST CALL DR ALMANZA OR DR CAICEDO OR GO TO THE EMERGENCY ROOM IF SYMPTOM RETURN OR WORSENING
--- NOTE | 2018-10-13 16:32 | CP.PCM.PN ---
Subjective - Date & Time of Evaluation Date of Evaluation: 10/13/18 Time of Evaluation: 12:00 - Subjective Subjective: PGY2 Neuro Note for Dr. Hodge Patient seen and examined this afternoon at bedside. Patient completed 24 hour EEG monitoring without incident. Patient is feeling well without complaints. He is hopeful to be discharged today. Objective - Vital Signs/Intake and Output Vital Signs (last 24 hours): Temp Pulse Resp BP Pulse Ox 97.6 F 76 20 106/74 97 10/13/18 08:00 10/13/18 08:00 10/13/18 08:00 10/13/18 08:00 10/13/18 08:00 Intake and Output: 10/13/18 10/13/18 06:59 18:59 Intake Total 600 Balance 600 - Labs Labs: 10/09/18 09:45 10/09/18 11:00 - Constitutional Appears: Non-toxic, No Acute Distress - Head Exam Head Exam: ATRAUMATIC, NORMOCEPHALIC - Eye Exam Eye Exam: Normal appearance - Respiratory Exam Respiratory Exam: NORMAL BREATHING PATTERN. absent: Accessory Muscle Use, Respiratory Distress - Extremities Exam Extremities Exam: absent: Pedal Edema - Neurological Exam Neurological Exam: Alert, Awake, Normal Gait, Oriented x3 Neuro motor strength exam: Left Upper Extremity: 5, Right Upper Extremity: 5, Left Lower Extremity: 5, Right Lower Extremity: 5 - Psychiatric Exam Psychiatric exam: Normal Affect, Normal Mood - Skin Skin Exam: Dry, Normal Color, Warm Assessment and Plan - Assessment and Plan (Free Text) Assessment: Seizure Discussed with patient that his 24 hour EEG was silent and showed no epileptiform discharges. Patient is continue taking Depakote 750mg PO BID and is safe to be discharged home. He is to follow up in Dr. Hodge's office on October 29. Patient states he understands and agrees. Please do not hesitate to call with any questions. Case discussed with Dr. Naveen Collins Americo PGY2
--- NOTE | 2018-10-14 15:12 | PCM.EEG ---
Electroencephalogram Report - Electroencephalogram Report Procedure Date: 10/11/18 Medication: None listed Interpretation: Technical Information: This was a 16 -channel EEG, 1-channel EKG routine EEG performed using an [email or web address] machine. Electrodes were applied using the 10/20 international placement system. Start 8;59 AM End 9;22 AM Total 23 min. Clinical Information: 39 y/o man with aphasia, concern for seizures. During resting wakefulness there was a symmetric posterior dominant rhythm at 8.5-9.5 Hz, 30-50 uV, which was reactive to eye opening and closing. Drowsiness (9;08) was associated with fragmentation of the posterior dominant rhythm and with slow roving eye movements. Light sleep (9;17) was recorded and was characterized by central vertex waves, sleep spindles, and bilateral theta slowing. Hyperventilation was not performed. Photic stimulation was performed and there were no changes on the record. Focal abnormality; none ECG was associated with a normal sinus rhythm. Impression: This is a normal awake drowsy and sleep electroencephalogram.
== END 2018-10-13 14:50 | disposition home or self-care (01) | DRG 890 ==
LOC: C.ER 09:13 → C.9E 10:46 → C.6T 19:03 → C.5S 10-11 22:31 → OBSVTOIN 10-12 17:17
PROVIDERS: ADMIT Internal Medicine Cardiovascular Disease; ATTEND Internal Medicine Cardiovascular Disease
DX: G40.209 Localization-related (focal) (partial) symptomatic epilepsy and epileptic syndromes with complex partial seizures, not intractable, without status epilepticus (principal); R47.01 Aphasia; I10 Essential (primary) hypertension; F41.8 Other specified anxiety disorders; F41.0 Panic disorder [episodic paroxysmal anxiety]; Z86.79 Personal history of other diseases of the circulatory system; Z86.73 Personal history of transient ischemic attack (TIA), and cerebral infarction without residual deficits

== ENCOUNTER 2018-11-27 07:31 | Emergency (ER) | payer OTHER ==
[2018-11-27 07:31] VITALS: BMI 33.2
--- NOTE | 2018-11-27 07:58 | C.PDOC ---
History Of Present Illness 43 year old male presents to the ED for evaluation of persistent cough, fever, and myalgia for 3 days. The patient reports T-max 104, s/p subjective fever prior to arrival. Admits to taking Ibuprofen prior to arrival. Denies smoking, abdominal pain, and any other associated symptoms. history of cerebral aneurysm on the anterior complicating artery. Patient had 2 times called inserted and the last angiogram showed almost disappearance of the aneurysm with a small neck still remaining patient also had a TIA symptoms a bout 2 years ago patient also has a history of hypertension neurology workup was negative, MRI of the head MRA of the head CT angios of the head a showed old aneurysm on the anterior, coronary artery with a with no evidence of any bleed. Patient underwent 24 hour video EEG Time Seen by Provider: 11/27/18 07:45 Chief Complaint (Nursing): Flu-like Symptoms History Per: Patient History/Exam Limitations: no limitations Onset/Duration Of Symptoms: Days (x3) Current Symptoms Are (Timing): Still Present Associated Symptoms: Fever Recent travel outside of the [place]: No Past Medical History Reviewed: Historical Data, Nursing Documentation, Vital Signs Vital Signs: Last Vital Signs Temp 99.5 F 11/27/18 07:37 Pulse 86 11/27/18 07:37 Resp 18 11/27/18 07:37 BP 128/82 11/27/18 07:37 Pulse Ox 100 11/27/18 07:37 - Medical History PMH: Anxiety, HTN, Seizures (2018), TIA (2017) Denies: Chronic Kidney Disease Family History: States: Unknown Family Hx - Social History Hx Tobacco Use: No Hx Alcohol Use: No Hx Substance Use: No - Immunization History Hx Tetanus Toxoid Vaccination: No Hx Influenza Vaccination: No Hx Pneumococcal Vaccination: No Review Of Systems Except As Marked, All Systems Reviewed And Found Negative. Constitutional: Positive for: Fever (t-max 104), Other (myalgia.) Respiratory: Positive for: Cough Physical Exam - Physical Exam Appears: Well, Non-toxic, No Acute Distress, Other (comfortable. ) Skin: Normal Color, Warm, Dry Head: Normacephalic Eye(s): bilateral: Normal Inspection Oral Mucosa: Moist Neck: Normal ROM Chest: Symmetrical, No Deformity Cardiovascular: Rhythm Regular, No Murmur Respiratory: Normal Breath Sounds, No Rales, No Rhonchi, No Wheezing Gastrointestinal/Abdominal: Normal Exam, Soft, No Tenderness Extremity: Bilateral: Atraumatic, Normal Color And Temperature, Normal ROM Neurological/Psych: Oriented x3, Normal Speech, Normal Cognition ED Course And Treatment O2 Sat by Pulse Oximetry: 100 (RA) Pulse Ox Interpretation: Normal - Radiology CXR: Interpreted by Me, Viewed By Me CXR Interpretation: Yes: Infiltrates (left, lower. ) Progress - Data Reviewed Data Reviewed: Diagnostic imaging, Old records Medical Decision Making Medical Decision Making: Plan: -CXR Progress/Update: Patient is stable for discharge home. Prescribed Avelox, Prinivil, Motrin, and Tessalon Perles. Advised to return to the ED if symptoms worsen. Disposition Counseled Patient/Family Regarding: Studies Performed, Diagnosis, Need For Followup, Rx Given - Disposition Referrals: YOUR,PMD [Other] Disposition: HOME/ ROUTINE Disposition Time: 07:57 Condition: GOOD Prescriptions: Benzonatate [Tessalon Perles] 200 mg PO TID PRN #15 sgl PRN Reason: Cough Ibuprofen [Motrin] 600 mg PO Q6 #30 tab Moxifloxacin [Avelox] 400 mg PO DAILY #7 tab Instructions: Pneumonia, Adult (DC) Forms: [facility] ([place]), Work Excuse - Clinical Impression Clinical Impression: Pneumonia - Scribe Statement The provider has reviewed the documentation as recorded by the Scribe (Kimberly Church) Provider Attestation: All medical record entries made by the Scribe were at my direction and personally dictated by me. I have reviewed the chart and agree that the record accurately reflects my personal performance of the history, physical exam, medical decision making, and the department course for this patient. I have also personally directed, reviewed, and agree with the discharge instructions and disposition.
[2018-11-27 08:08] VITALS: BP 118/84; PULSE 92; RESP 20; TEMP 99.3
[2018-11-27 08:13] VITALS: O2SAT 100
--- NOTE | 2018-11-27 09:15 | RAD ---
Date of service: 11/27/2018 HISTORY: Cough and fever COMPARISON: 10/09/2018. TECHNIQUE: Chest PA and lateral FINDINGS: LINES AND TUBES: None. LUNG AND PLEURA: The lungs are well inflated. There is consolidation in the left lower lobe. No pleural effusion or pneumothorax. HEART AND MEDIASTINUM: The heart is not enlarged. No aortic atherosclerotic calcifications present. The hilar and mediastinal contours are within normal limits. SKELETAL STRUCTURES: The bony structures are within normal limits for the patient's age. VISUALIZED UPPER ABDOMEN: Normal. OTHER FINDINGS: None. IMPRESSION: Left lower lobe pneumonia. Follow-up after medical management is recommended to ensure complete resolution.
== END 2018-11-27 08:06 | disposition home or self-care (01) ==
LOC: C.ER 07:31
DX: J18.9 Pneumonia, unspecified organism (principal)